=== PATIENT | male | born 1980 | race African-American/Black ===

== ENCOUNTER 2017-10-23 17:51 | Emergency (ER) | payer SELFPAY ==
[~2017-10-23] VITALS: Ht 182.9 cm; Wt 137.0 kg
[2017-10-23 18:19] VITALS: BP 127/106; PULSE 97; RESP 17; TEMP 98.1; O2SAT 99
[2017-10-23] MEDS ORDERED: CEPH-460 PO (20:42)
[2017-10-23] MEDS ORDERED: MUPI2OIN TOPICAL (20:42)
--- NOTE | 2017-10-23 20:42 | PD ---
HPI Chief Complaint: Skin Problem Time Seen by Provider: 20:33 Travel History International Travel<30 days: No Contact w/Intl Traveler<30days: No Traveled to known affect area: No History of Present Illness HPI 37-year-old male here for evaluation of painful bumps to his right face. He first noticed them 5 days ago. They became painful today. He states he has not squeezed them at all. Pain is moderate, constant, worse with palpation. He denies fevers or chills. No history of diabetes. He does shave his face in the area that the bumps have occurred. [facility] Past Medical History Asthma: Yes (CHILDHOOD) Tetanus Vaccination: Unknown Influenza Vaccination: No Past Surgical History Surgical History: No Previous Surgery Social History Alcohol Use: No Tobacco Use: Yes Substance Use: No Allergies-Medications (Allergen,Severity, Reaction): Coded Allergies: No Known Allergies (Unverified , 10/23/17) Reported Meds & Prescriptions Reported Meds & Active Scripts Active No Active Prescriptions or Reported Medications Review of Systems Except as stated in HPI: all other systems reviewed are Neg Physical Exam Narrative GENERAL: Well-developed, well-nourished, comfortable, no apparent distress. SKIN: On the patient's face near the right nasolabial fold there are 2 areas of induration with open/crusty/honeycombing appearance and surrounding induration, no fluctuance. There is another pustule on the patient's right cheek closer to his eye. HEAD: Skin exam as above. Normocephalic. EYES: Pupils equal, round, 3 mm, reactive to light. EOMI. No scleral icterus. No injection or drainage. ENT: Mucous membranes pink and moist. No intraoral lesions. NECK: Trachea midline. No JVD. CARDIOVASCULAR: Regular rate and rhythm. No murmur appreciated. RESPIRATORY: No accessory muscle use. Clear to auscultation. Breath sounds equal bilaterally. MUSCULOSKELETAL: No obvious deformities. No clubbing. No cyanosis. No edema. NEUROLOGICAL: Awake and alert. No obvious cranial nerve deficits. Motor grossly within normal limits. Normal speech. PSYCHIATRIC: Appropriate mood and affect; insight and judgment normal. Data Data Last Documented VS Vital Signs Date Time Temp Pulse Resp B/P (MAP) Pulse Ox O2 Delivery O2 Flow Rate FiO2 10/23/17 18:19 98.1 97 17 127/106 (113) 99 MDM Medical Decision Making Medical Screen Exam Complete: Yes Emergency Medical Condition: Yes Differential Diagnosis Folliculitis, impetigo, pseubarbae folliculitis, cellulitis, abscess Narrative Course Vital signs reviewed. This is a 37-year-old male with 3 pustules on his right face with honeycombing suggestive of impetigo. This appears to be folliculitis. He does shave in the area where these bumps have occurred. There are no intraoral lesions. Extraocular movements are intact and pupils are equal, round, reactive to light. Plan is to start him on mupirocin and Keflex and have him follow-up with a primary care physician this week. He was advised on when to return to the emergency department. He verbalizes understanding and agreement with plan. Diagnosis Primary Impression: Folliculitis Referrals: [facility] 3 days Additional Instructions: Ptotic as prescribed. Return to the emergency department for worsening symptoms or any other concerns. Scripts Mupirocin Topical (Mupirocin Topical) 2 % Oint 1 APPLIC TOPICAL BID for Mgmt Bacterial Infection, #22 GM 0 Refills Prov: Yoshi Mitchell MD 10/23/17 Cephalexin (Keflex) 500 Mg Cap 500 MG PO Q8H for Infection, #30 CAP 0 Refills Prov: Yoshi Mitchell MD 10/23/17 Disposition: 01 DISCHARGE HOME Condition: Stable Yoshi Mitchell MD Oct 23, 2017 20:42
[2017-10-23] MEDS ORDERED: CEPHALEXIN MONOHYDRATE 500 MG CAP PO ONE (20:45)
[2017-10-23] MEDS ORDERED: MUPIROCIN 2% OINT 22 GM TUBE TOPICAL ONE (20:45)
== END 2017-10-23 22:00 | disposition home or self-care (01) ==
LOC: NEPD 17:51
DX: L73.9 Follicular disorder, unspecified (principal); R51 Headache; Z72.0 Tobacco use; Z87.09 Personal history of other diseases of the respiratory system
CPT/HCPCS: 99283